=== PATIENT | male | born 1940 | race American Indian/Alaskan Native ===

== ENCOUNTER 2017-08-07 08:13 | Outpatient (CLI) | payer OTHER ==
[~2017-08-07 08:13] MED LIST: FLONASE16 GM NASAL
== END 2017-08-07 08:21 | disposition home or self-care (01) ==
LOC: SONOGRAMA 08:13
DX: R31.9 Hematuria, unspecified (principal)

== ENCOUNTER 2018-04-13 08:35 | Outpatient (CLI) | payer OTHER ==
[~2018-04-13] VITALS: Ht 152.4 cm; Wt 60.3 kg
== END 2018-04-13 08:50 | disposition home or self-care (01) ==
LOC: OFIC 805 08:35
DX: J31.0 Chronic rhinitis (principal); H61.23 Impacted cerumen, bilateral; H90.3 Sensorineural hearing loss, bilateral

== ENCOUNTER 2018-07-04 10:55 | Outpatient (CLI) | payer OTHER | END 2018-07-04 12:37 | disposition home or self-care (01) | LOC: NUCLEAR 10:55 | DX: M81.0 Age-related osteoporosis without current pathological fracture (principal); M25.461 Effusion, right knee; M25.462 Effusion, left knee; M79.662 Pain in left lower leg; M79.661 Pain in right lower leg ==

== ENCOUNTER 2018-10-14 09:50 | Outpatient (CLI) | payer OTHER ==
[~2018-10-14] VITALS: Ht 152.4 cm; Wt 5.9 kg
== END 2018-10-14 10:10 | disposition home or self-care (01) ==
LOC: OFIC 805 09:50
DX: J31.0 Chronic rhinitis (principal); H90.3 Sensorineural hearing loss, bilateral; H61.23 Impacted cerumen, bilateral

== ENCOUNTER 2019-02-08 12:24 | Outpatient (CLI) | payer OTHER | END 2019-02-08 12:31 | disposition home or self-care (01) | LOC: SONOGRAMA 12:24 | DX: K76.89 Other specified diseases of liver (principal) ==

== ENCOUNTER 2019-02-24 08:40 | Outpatient (CLI) | payer OTHER ==
[~2019-02-24] VITALS: Ht 152.4 cm; Wt 59.0 kg
== END 2019-02-24 12:25 | disposition home or self-care (01) ==
LOC: OFIC 805 08:40
DX: J31.0 Chronic rhinitis (principal); H90.3 Sensorineural hearing loss, bilateral; H61.23 Impacted cerumen, bilateral

== ENCOUNTER 2019-07-10 08:24 | Outpatient (CLI) | payer OTHER ==
[~2019-07-10] VITALS: Ht 152.4 cm; Wt 59.0 kg
== END 2019-07-10 12:43 | disposition home or self-care (01) ==
LOC: OFIC 805 08:24
DX: H90.3 Sensorineural hearing loss, bilateral (principal); H61.23 Impacted cerumen, bilateral
CPT/HCPCS: 69210; 99204; G0463

== ENCOUNTER 2020-02-13 07:53 | Outpatient (CLI) | payer OTHER | END 2020-02-13 07:59 | disposition home or self-care (01) | LOC: SONOGRAMA 07:53 → MAMO-SONO 08:15 | PROVIDERS: ATTEND Internal Medicine | DX: D12.2 Benign neoplasm of ascending colon (principal); H90.5 Unspecified sensorineural hearing loss; H90.6 Mixed conductive and sensorineural hearing loss, bilateral; R31.21 Asymptomatic microscopic hematuria; K80.12 Calculus of gallbladder with acute and chronic cholecystitis without obstruction ==

== ENCOUNTER 2020-02-14 13:05 | Outpatient (CLI) | payer OTHER | END 2020-02-14 14:00 | disposition home or self-care (01) | LOC: OFIC 805 13:05 | PROVIDERS: ATTEND Otolaryngology | DX: J31.0 Chronic rhinitis (principal); H90.3 Sensorineural hearing loss, bilateral; H61.23 Impacted cerumen, bilateral; H93.8X3 Other specified disorders of ear, bilateral ==

== ENCOUNTER → 2020-05-14 | Outpatient (CLI) | payer OTHER | END | disposition home or self-care (01) | LOC: OFIC 805 09:00 | PROVIDERS: ATTEND Otolaryngology | DX: H90.3 Sensorineural hearing loss, bilateral (principal); H81.12 Benign paroxysmal vertigo, left ear ==

== ENCOUNTER 2020-08-06 08:20 | Outpatient (CLI) | payer OTHER | END 2020-08-06 10:44 | disposition home or self-care (01) | LOC: OFIC 805 08:20 | PROVIDERS: ATTEND Otolaryngology | DX: H81.13 Benign paroxysmal vertigo, bilateral (principal) ==

== ENCOUNTER 2020-08-07 07:49 | Outpatient (CLI) | payer OTHER | END 2020-08-07 14:46 | disposition home or self-care (01) | LOC: LAB 07:49 | PROVIDERS: ATTEND Otolaryngology | DX: R42 Dizziness and giddiness (principal) ==

== ENCOUNTER 2020-08-12 07:55 | Outpatient (CLI) | payer OTHER | END 2020-08-12 08:07 | disposition home or self-care (01) | LOC: MRI 07:55 | PROVIDERS: ATTEND Otolaryngology | DX: R42 Dizziness and giddiness (principal) | CPT/HCPCS: 70553; A9575; 70552 ==

== ENCOUNTER 2020-08-28 08:05 | Outpatient (CLI) | payer OTHER | END 2020-08-28 08:40 | disposition home or self-care (01) | LOC: OFIC 805 08:05 | PROVIDERS: ATTEND Otolaryngology Otology & Neurotology | DX: H81.13 Benign paroxysmal vertigo, bilateral (principal); H90.3 Sensorineural hearing loss, bilateral ==

== ENCOUNTER 2020-10-14 08:23 | Emergency (ER) | payer OTHER ==
[~2020-10-14] VITALS: Ht 170.2 cm; Wt 62.6 kg
[2020-10-14] MEDS ORDERED: TAMS0.4C (08:49)
[2020-10-14] MEDS ORDERED: KETO10TA2 PO (14:05)
== END 2020-10-14 14:13 | disposition home or self-care (01) ==
LOC: ER 08:23
DX: S33.5XXA Sprain of ligaments of lumbar spine, initial encounter (principal); M54.5 Low back pain; W01.0XXA Fall on same level from slipping, tripping and stumbling without subsequent striking against object, initial encounter; Y93.01 Activity, walking, marching and hiking; Y92.413 State road as the place of occurrence of the external cause; Y99.8 Other external cause status

== ENCOUNTER 2020-11-22 08:28 | Outpatient (CLI) | payer OTHER ==
[~2020-11-22 08:28] MED LIST changes: +KETO10TA2 PO; +TAMS0.4C
== END 2020-11-22 08:37 | disposition home or self-care (01) ==
LOC: MRI 08:28
PROVIDERS: ATTEND Physical Medicine & Rehabilitation
DX: M54.5 Low back pain (principal)
CPT/HCPCS: 72148

== ENCOUNTER 2021-01-16 08:00 | Outpatient (CLI) | payer OTHER | END 2021-01-16 08:30 | disposition home or self-care (01) | LOC: PPH VACUNA 08:00 | DX: Z23 Encounter for immunization (principal) ==

== ENCOUNTER 2021-09-01 08:00 | Outpatient (CLI) | payer OTHER | END 2021-09-01 08:30 | disposition home or self-care (01) | LOC: PPH VACUNA 08:00 | PROVIDERS: ATTEND Emergency Medicine Pediatric Emergency Medicine | DX: Z23 Encounter for immunization (principal) ==

== ENCOUNTER → 2021-12-23 | Emergency (ER) | payer OTHER ==
[~2021-12-23] VITALS: Ht 172.7 cm; Wt 59.0 kg
== END | disposition left against medical advice (07) ==
LOC: ER 14:28
DX: U07.1 COVID-19 (principal); R50.9 Fever, unspecified; Z85.038 Personal history of other malignant neoplasm of large intestine

== ENCOUNTER 2022-02-23 07:07 | Outpatient (CLI) | payer OTHER | END 2022-02-23 07:12 | disposition home or self-care (01) | LOC: SONOGRAMA 07:07 | PROVIDERS: ATTEND Urology | DX: R31.1 Benign essential microscopic hematuria (principal) ==

== ENCOUNTER 2022-06-28 08:43 | Emergency (ER) | payer OTHER ==
[~2022-06-28] VITALS: Ht 170.2 cm; Wt 61.2 kg
== END 2022-06-28 11:11 | disposition home or self-care (01) ==
LOC: ER 08:43
DX: S09.90XA Unspecified injury of head, initial encounter (principal); W18.30XA Fall on same level, unspecified, initial encounter; Y93.9 Activity, unspecified; Y92.9 Unspecified place or not applicable

== ENCOUNTER → 2022-09-18 | Outpatient (CLI) | payer OTHER | END | disposition home or self-care (01) | LOC: MRI 08:23 | PROVIDERS: ATTEND Emergency Medicine Pediatric Emergency Medicine | DX: H90.5 Unspecified sensorineural hearing loss (principal); H90.6 Mixed conductive and sensorineural hearing loss, bilateral; I63.22 Cerebral infarction due to unspecified occlusion or stenosis of basilar artery; I67.9 Cerebrovascular disease, unspecified; D12.2 Benign neoplasm of ascending colon; Z12.11 Encounter for screening for malignant neoplasm of colon | CPT/HCPCS: 70551 ==

== ENCOUNTER 2022-11-18 08:50 | Outpatient (CLI) | payer OTHER | END 2022-11-18 08:51 | disposition home or self-care (01) | LOC: NUCLEAR 08:50 | PROVIDERS: ATTEND Internal Medicine | DX: D12.2 Benign neoplasm of ascending colon (principal); H90.5 Unspecified sensorineural hearing loss; H90.6 Mixed conductive and sensorineural hearing loss, bilateral; Z12.11 Encounter for screening for malignant neoplasm of colon; I63.22 Cerebral infarction due to unspecified occlusion or stenosis of basilar artery; I67.9 Cerebrovascular disease, unspecified; G90.01 Carotid sinus syncope ==

== ENCOUNTER 2024-10-18 09:33 | Outpatient (CLI) | payer OTHER | END 2024-10-18 10:00 | disposition home or self-care (01) | LOC: MRI 09:33 | PROVIDERS: ATTEND Internal Medicine | DX: R55 Syncope and collapse (principal); D12.2 Benign neoplasm of ascending colon; H90.5 Unspecified sensorineural hearing loss; H90.6 Mixed conductive and sensorineural hearing loss, bilateral; Z12.11 Encounter for screening for malignant neoplasm of colon; I67.9 Cerebrovascular disease, unspecified; I73.9 Peripheral vascular disease, unspecified; K62.5 Hemorrhage of anus and rectum | CPT/HCPCS: 70551 ==

== ENCOUNTER → 2025-05-08 | Outpatient (CLI) | payer OTHER | END | disposition home or self-care (01) | LOC: SONOGRAMA 10:19 | PROVIDERS: ATTEND Urology | DX: N40.0 Benign prostatic hyperplasia without lower urinary tract symptoms (principal); R31.0 Gross hematuria; N20.0 Calculus of kidney ==